=== PATIENT | female | born 1985 | race Caucasian/White ===

== ENCOUNTER → 2018-12-20 | Outpatient (CLI) | payer BC ==
[2018-12-20 15:09] LABS: ALBUMIN 4.1 g/dL (3.5-5.0); ALKALINE PHOSPHATASE 68 U/L (38-126); ASPARTATE AMINO TRANSFERASE 30 U/L (14-36); BILIRUBIN,DIRECT 0.2 mg/dL (0.0-0.4); BILIRUBIN,TOTAL 0.2 mg/dL (0.2-1.3); TOTAL PROTEIN 7.3 g/dL (6.3-8.2)
== END ==
LOC: OD 13:52
PROVIDERS: ATTEND Specialist
DX: Z20.2 Contact with and (suspected) exposure to infections with a predominantly sexual mode of transmission (principal)
CPT/HCPCS: 36415; 80076; 86592; 86765; 86803; 86804; 87340